=== PATIENT | female | born 1955 | race African-American/Black ===

== ENCOUNTER 2018-12-26 20:31 | Inpatient (IN) | payer OTHER ==
[~2018-12-26] VITALS: Ht 162.6 cm; Wt 58.7 kg
[2018-12-26 21:45] VITALS: BP 152/85
[2018-12-26] MEDS ORDERED: ONDANSETRON PF 4 MG/2 ML VIAL. IVP PRN (22:45)
[2018-12-26] MEDS ORDERED: ACETAMINOPHEN 325 MG TABLET. PO PRN (22:45)
[2018-12-26] MEDS ORDERED: levOFLOXacin PER PHARMACY. MC PRN (23:00)
[2018-12-26] MEDS: oxyCODONE/APAP 5/325 1 TAB TABLET PO PRN (23:14)
[2018-12-26 23:16] VITALS: BP 135/86
[2018-12-27 03:09] VITALS: BP 159/87
--- NOTE | 2018-12-27 03:42 | NUR ---
12/26/18 2140 pt arrived to unit transferred to room 410 from [facility] per EMS, admit care done, new orders reviewed with pt and , POC discussed to pt and verbalized understanding.
[2018-12-27 05:06] LABS: BASO % 1 % (0-3); EOS # 0.1 x10^3/uL (0.0-0.7); EOS % 1 % (0-3); HEMOGLOBIN 12.2 g/dL (12.0-15.5); LYMPH % 28 % (24-48); MEAN CORPUSCULAR HEMOGLOBIN 31 pg (25-35); MEAN CORPUSCULAR HGB CONC 34 g/dL (31-37); MEAN CORPUSCULAR VOLUME 93 fL (79-100); MONO # 0.5 x10^3/uL (0.0-1.1); MONO % 6 % (0-9); NEUT # 4.5 x10^3/uL (1.8-7.7); NEUT % 64 % (31-73); PLATELET COUNT 546 x10^3/uL (140-400); RED BLOOD COUNT 3.88 x10^6/uL (3.50-5.40); RED CELL DISTRIBUTION WIDTH 13.6 % (11.5-14.5); WHITE BLOOD COUNT 7.1 x10^3/uL (4.0-11.0)
[2018-12-27 05:17] LABS: PROTHROMBIN TIME PATIENT 13.7 SEC (11.7-14.0)
[2018-12-27 05:43] LABS: ALBUMIN 2.7 g/dL (3.4-5.0); ALBUMIN/GLOBULIN RATIO 0.6 (1.0-1.7); CALCIUM 8.7 mg/dL (8.5-10.1); CREATININE 0.8 mg/dL (0.6-1.0); GFR 87.7; POTASSIUM 3.8 mmol/L (3.5-5.1); TOTAL BILIRUBIN 0.3 mg/dL (0.2-1.0); TOTAL PROTEIN 7.3 g/dL (6.4-8.2)
[2018-12-27] MEDS ORDERED: cloNIDine HCL 0.1 MG TABLET PO SCH (06:00)
[2018-12-27] MEDS: oxyCODONE/APAP 5/325 1 TAB TABLET PO PRN ×2 (06:06→09:54)
[2018-12-27] MEDS ORDERED: cloNIDine HCL 0.1 MG TABLET PO PRN ×2 (06:15→07:45)
[2018-12-27 07:00] VITALS: BP 169/79
--- NOTE | 2018-12-27 09:26 | PDOC2 ---
GI CONSULT Reason For Consult: Diverticulitis HPI: HPI: Pleasant 63 y/o female transferred from [place], present. Reports 3 days of lower abdominal stabbing, intermittent, worse w/ eating. No reflux/heartburn, dysphagia, n/v, diarrhea, constipation, hematochezia, melena, or weight loss. Labs here note normal WBC, glucose 304 (known DM - says controlled w/ diet), ALT 112, and Alk Phos 372. 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 On IV Levaquin, tolerating full liquid diet, feels better today. No previous EGD. Reportedly normal colonoscopy ~[address] [facility]. No GB, liver, pancreas, or PUD history. No NSAIDs. PMH: PMH: DM right cataract removal/lens implant, left oophorectomy FH: Family History: Cancer (father - throat) Social History: Smoke: No ALCOHOL: occassional Drugs: None ROS: GEN: Denies fevers, chills, sweats HEENT: Denies blurred vision, sore throat CV: Denies chest pain RESP: Denies shortness of air, cough GI: Per HPI : Denies hematuria, dysuria ENDO: Denies weight changes NEURO: Denies confusion, dizziness MSK: Denies weakness, joint pain/swelling SKIN: Denies jaundice, pruritus Vitals: Vitals: Vital Signs Date Time Temp Pulse Resp B/P (MAP) Pulse Ox O2 Delivery O2 Flow Rate FiO2 12/27/18 07:00 98.2 80 16 169/79 (109) 95 Room Air 98.2 Labs: Labs: Laboratory Tests Test 12/27/18 04:10 White Blood Count 7.1 x10^3/uL (4.0-11.0) Red Blood Count 3.88 x10^6/uL (3.50-5.40) Hemoglobin 12.2 g/dL (12.0-15.5) Hematocrit 36.0 % (36.0-47.0) Mean Corpuscular Volume 93 fL (79-100) Mean Corpuscular Hemoglobin 31 pg (25-35) Mean Corpuscular Hemoglobin Concent 34 g/dL (31-37) Red Cell Distribution Width 13.6 % (11.5-14.5) Platelet Count 546 x10^3/uL (140-400) Neutrophils (%) (Auto) 64 % (31-73) Lymphocytes (%) (Auto) 28 % (24-48) Monocytes (%) (Auto) 6 % (0-9) Eosinophils (%) (Auto) 1 % (0-3) Basophils (%) (Auto) 1 % (0-3) Neutrophils # (Auto) 4.5 x10^3/uL (1.8-7.7) Lymphocytes # (Auto) 2.0 x10^3/uL (1.0-4.8) Monocytes # (Auto) 0.5 x10^3/uL (0.0-1.1) Eosinophils # (Auto) 0.1 x10^3/uL (0.0-0.7) Basophils # (Auto) 0.0 x10^3/uL (0.0-0.2) Erythrocyte Sedimentation Rate 50 (0-25) Prothrombin Time 13.7 SEC (11.7-14.0) Prothromb Time International Ratio 1.1 (0.8-1.1) Sodium Level 140 mmol/L (136-145) Potassium Level 3.8 mmol/L (3.5-5.1) Chloride Level 105 mmol/L (98-107) Carbon Dioxide Level 27 mmol/L (21-32) Anion Gap 8 (6-14) Blood Urea Nitrogen 9 mg/dL (7-20) Creatinine 0.8 mg/dL (0.6-1.0) Estimated GFR (Cockcroft-Gault) 87.7 BUN/Creatinine Ratio 11 (6-20) Glucose Level 304 mg/dL (70-99) Calcium Level 8.7 mg/dL (8.5-10.1) Total Bilirubin 0.3 mg/dL (0.2-1.0) Aspartate Amino Transf (AST/SGOT) 33 U/L (15-37) Alanine Aminotransferase (ALT/SGPT) 112 U/L (14-59) Alkaline Phosphatase 372 U/L (46-116) Total Protein 7.3 g/dL (6.4-8.2) Albumin 2.7 g/dL (3.4-5.0) Albumin/Globulin Ratio 0.6 (1.0-1.7) Allergies: Coded Allergies: Penicillins (Verified Allergy, Unknown, 12/27/18) Uncoded Allergies: pcn (Allergy, Severe, swelling,hives, 12/26/18) Medications: Current Medications Medications (Trade) Dose Ordered Sig/Sloan Route PRN Reason Start Time Stop Time Status Last Admin Dose Admin Oxycodone/ Acetaminophen (Percocet 5/325) 1 tab PRN Q6HRS PRN PO PAIN 12/26/18 22:45 12/26/18 23:14 Levofloxacin/ Dextrose 100 ml @ 100 mls/hr 1X ONCE IV 12/26/18 23:00 12/26/18 23:59 DC 12/26/18 23:13 Imaging: Imaging: Per HPI. 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 Okay to ADAT. Will review CT report w/ Dr. Brown. Note Dr. Torres asked to see re: liver findings. Outpt colonoscopy in 2-3 months. JENNIFER FERRER Dec 27, 2018 09:26
--- NOTE | 2018-12-27 09:57 | PDOC1 ---
History and Physical Date of Admission Date of Admission DATE: 12/27/18 TIME: 09:50 Identification/Chief Complaint Chief Complaint abd pain x few days. 3 lb weight loss Source Source: Caregiver, Chart review, Patient History of Present Illness History of Present Illness she really does not have any signif past medical, does not take any meds at home, transfer from [place] for abd pain few days and some 3 lb weight loss. NO other sxs,. Denies fam hx CA. Denios diarrhea, nausea. emesis or fevers. Diverticulitis on CT with some mucosal wall thickening proximal colon cant rule out underlying malignancy, She also has a 2.5 cm inferior right hepatic lobe mass that is also news to her, She had a c scope Dr Spaulding some 5 yrs ago as routine and was told to come back in 10 yrs, I reviewed chart and labs from [facility]. SHe also has MERRY thrombosis, I conuslted gI and heme onc, ordered AFP US will be done and if confirms hepatic mass will need biospy HEme onc has ordered lovenox weight based BID< Dw RNs and pt and family at bedside NO home meds to reconcile PCN allergy - hives - i started levaquin Past Medical History Cardiovascular: No pertinent hx Pulmonary: No pertinent hx GI: No pertinent hx Heme/Onc: No pertinent hx Hepatobiliary: No pertinent hx Psych: No pertinent hx Rheumatologic: No pertinent hx Infectious disease: No pertinent hx ENT: No pertinent hx Renal/: No pertinent hx, Other (ovarian cyst) Endocrine: No pertinent hx Dermatology: No pertinent hx Past Surgical History Past Surgical History: Other (catract sx) Family History Family History: No Significant Social History Smoke: No ALCOHOL: occassional Drugs: None Current Medications Current Medications Current Medications Ondansetron HCl (Zofran) 4 mg PRN Q6HRS PRN IVP NAUSEA/VOMITING; Start 12/26/18 at 22:45 Morphine Sulfate (Morphine Sulfate) 2 mg PRN Q2HR PRN IV PAIN; Start 12/26/18 at 22:45 Acetaminophen (Tylenol) 650 mg PRN Q6HRS PRN PO mild pain/fever; Start 12/26/18 at 22:45 Oxycodone/ Acetaminophen (Percocet 5/325) 1 tab PRN Q6HRS PRN PO MODERATE - SEVERE PAIN Last administered on 12/26/18at 23:14; Start 12/26/18 at 22:45 Clonidine HCl (Catapres) 0.1 mg Q8HRS PO ; Start 12/27/18 at 06:00; Stop 12/27/18 at 06:06; Status DC Levofloxacin/ Dextrose (Levaquin Per Pharmacy) 1 each PRN DAILY PRN MC SEE COMMENTS; Start 12/26/18 at 23:00 Levofloxacin/ Dextrose 100 ml @ 100 mls/hr 1X ONCE IV Last administered on 12/26/18at 23:13; Start 12/26/18 at 23:00; Stop 12/26/18 at 23:59; Status DC Levofloxacin/ Dextrose 100 ml @ 100 mls/hr Q24H IV ; Start 12/27/18 at 21:00 Clonidine HCl (Catapres) 0.1 mg PRN Q8HRS PRN PO HYPERTENSION; Start 12/27/18 at 06:15; Stop 12/27/18 at 07:37; Status DC Clonidine HCl (Catapres) 0.1 mg PRN Q2HRS PRN PO HYPERTENSION; Start 12/27/18 at 07:45 Allergies Allergies: Coded Allergies: Penicillins (Verified Allergy, Severe, SWELLING, HIVES, 12/27/18) ROS Review of System as per HPI,all else neg Physical Exam General: Alert, Oriented X3, Cooperative, No acute distress HEENT: Atraumatic, EOMI Lungs: Clear to auscultation, Normal air movement Heart: S1S2, RRR, no thrills, no rubs, no gallops, no murmurs Cardiovascular: S1, S2 Breasts: Normal, Rt breast nml w/o mass, Lt breast nml w/o mass, Nipples normal Abdomen: Normal bowel sounds, Soft, No tenderness, No hepatosplenomegaly, No masses PELVIC: Nml ext genitalia Extremities: No clubbing, No cyanosis, No edema, Normal pulses, No tenderness/swelling Skin: No rashes, No breakdown, No significant lesion Neuro: Normal gait, Normal speech, Strength at 5/5 X4 ext, Normal tone, Sensation intact, Cranial nerves 3-12 NL, Reflexes 2+ Psych/Mental Status: Mental status NL, Mood NL Vitals Vitals Vital Signs Date Time Temp Pulse Resp B/P (MAP) Pulse Ox O2 Delivery O2 Flow Rate FiO2 12/27/18 07:00 98.2 80 16 169/79 (109) 95 Room Air 98.2 Labs Labs Laboratory Tests Test 12/27/18 04:10 White Blood Count 7.1 x10^3/uL (4.0-11.0) Red Blood Count 3.88 x10^6/uL (3.50-5.40) Hemoglobin 12.2 g/dL (12.0-15.5) Hematocrit 36.0 % (36.0-47.0) Mean Corpuscular Volume 93 fL (79-100) Mean Corpuscular Hemoglobin 31 pg (25-35) Mean Corpuscular Hemoglobin Concent 34 g/dL (31-37) Red Cell Distribution Width 13.6 % (11.5-14.5) Platelet Count 546 x10^3/uL (140-400) Neutrophils (%) (Auto) 64 % (31-73) Lymphocytes (%) (Auto) 28 % (24-48) Monocytes (%) (Auto) 6 % (0-9) Eosinophils (%) (Auto) 1 % (0-3) Basophils (%) (Auto) 1 % (0-3) Neutrophils # (Auto) 4.5 x10^3/uL (1.8-7.7) Lymphocytes # (Auto) 2.0 x10^3/uL (1.0-4.8) Monocytes # (Auto) 0.5 x10^3/uL (0.0-1.1) Eosinophils # (Auto) 0.1 x10^3/uL (0.0-0.7) Basophils # (Auto) 0.0 x10^3/uL (0.0-0.2) Erythrocyte Sedimentation Rate 50 (0-25) Prothrombin Time 13.7 SEC (11.7-14.0) Prothromb Time International Ratio 1.1 (0.8-1.1) Sodium Level 140 mmol/L (136-145) Potassium Level 3.8 mmol/L (3.5-5.1) Chloride Level 105 mmol/L (98-107) Carbon Dioxide Level 27 mmol/L (21-32) Anion Gap 8 (6-14) Blood Urea Nitrogen 9 mg/dL (7-20) Creatinine 0.8 mg/dL (0.6-1.0) Estimated GFR (Cockcroft-Gault) 87.7 BUN/Creatinine Ratio 11 (6-20) Glucose Level 304 mg/dL (70-99) Calcium Level 8.7 mg/dL (8.5-10.1) Total Bilirubin 0.3 mg/dL (0.2-1.0) Aspartate Amino Transf (AST/SGOT) 33 U/L (15-37) Alanine Aminotransferase (ALT/SGPT) 112 U/L (14-59) Alkaline Phosphatase 372 U/L (46-116) Total Protein 7.3 g/dL (6.4-8.2) Albumin 2.7 g/dL (3.4-5.0) Albumin/Globulin Ratio 0.6 (1.0-1.7) Laboratory Tests Test 12/27/18 04:10 White Blood Count 7.1 x10^3/uL (4.0-11.0) Red Blood Count 3.88 x10^6/uL (3.50-5.40) Hemoglobin 12.2 g/dL (12.0-15.5) Hematocrit 36.0 % (36.0-47.0) Mean Corpuscular Volume 93 fL (79-100) Mean Corpuscular Hemoglobin 31 pg (25-35) Mean Corpuscular Hemoglobin Concent 34 g/dL (31-37) Red Cell Distribution Width 13.6 % (11.5-14.5) Platelet Count 546 x10^3/uL (140-400) Neutrophils (%) (Auto) 64 % (31-73) Lymphocytes (%) (Auto) 28 % (24-48) Monocytes (%) (Auto) 6 % (0-9) Eosinophils (%) (Auto) 1 % (0-3) Basophils (%) (Auto) 1 % (0-3) Neutrophils # (Auto) 4.5 x10^3/uL (1.8-7.7) Lymphocytes # (Auto) 2.0 x10^3/uL (1.0-4.8) Monocytes # (Auto) 0.5 x10^3/uL (0.0-1.1) Eosinophils # (Auto) 0.1 x10^3/uL (0.0-0.7) Basophils # (Auto) 0.0 x10^3/uL (0.0-0.2) Erythrocyte Sedimentation Rate 50 (0-25) Prothrombin Time 13.7 SEC (11.7-14.0) Prothromb Time International Ratio 1.1 (0.8-1.1) Sodium Level 140 mmol/L (136-145) Potassium Level 3.8 mmol/L (3.5-5.1) Chloride Level 105 mmol/L (98-107) Carbon Dioxide Level 27 mmol/L (21-32) Anion Gap 8 (6-14) Blood Urea Nitrogen 9 mg/dL (7-20) Creatinine 0.8 mg/dL (0.6-1.0) Estimated GFR (Cockcroft-Gault) 87.7 BUN/Creatinine Ratio 11 (6-20) Glucose Level 304 mg/dL (70-99) Calcium Level 8.7 mg/dL (8.5-10.1) Total Bilirubin 0.3 mg/dL (0.2-1.0) Aspartate Amino Transf (AST/SGOT) 33 U/L (15-37) Alanine Aminotransferase (ALT/SGPT) 112 U/L (14-59) Alkaline Phosphatase 372 U/L (46-116) Total Protein 7.3 g/dL (6.4-8.2) Albumin 2.7 g/dL (3.4-5.0) Albumin/Globulin Ratio 0.6 (1.0-1.7) VTE Prophylaxis Ordered VTE Prophylaxis Devices: Yes VTE Pharmacological Prophylaxi: Yes Assessment/Plan Assessment/Plan ACute diverticultis Prox wall colon thickening cant rule out underlying malignancy 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
--- NOTE | 2018-12-27 10:02 | PDOC2 ---
CONSULT Date of Consult Date of Consult DATE: 12/27/18 TIME: 09:56 Reason for consultation: Liver mass Consult: Hematology oncology, Dr. Yasmin Callaway History of present illness: She is a 63 female who had abdominal pain, acute, ongoing 5 days, worsening over time, better with meds since admission, with antibiotics and pain meds, assoc w/ a 8 lb wt loss in the last week, denies nausea vomiting constipation or diarrhea, ct shows lymphadenopathy which may be due to inflammatory changes and a liver mass as well as suspected sigmoid diverticulitis. Past medical history: Diabetes mellitus Cataracts Ovarian cyst Migraine Past surgical history: Left ovarian cystectomy Cataract surgery Colonoscopy remotely Allergies: Penicillin Medications: See attached list Social history: Family history: Father with throat cancer Review of systems: Weight loss, abdominal pain, otherwise rest of 10 point review of systems negative this morning Physical exam: Vitals reviewed Gen.: Well-nourished and well-developed in no acute distress HEENT: mucous membranes moist, head normocephalic atraumatic Neck: Supple, no lymphadenopathy Lymph nodes: No palpable lymphadenopathy neck or axilla Lungs: Breathing comfortably w/o evidence of respiratory distress Heart: Regular rate and rhythm Abdomen: Soft, sl TTP lower, nondistended Extremities: No cyanosis or signif edema Skin: No obvious rashes or skin breakdown Neuro: Alert and oriented 3 Psych: Normal mood and affect Lab reviewed: White count 7.1, hemoglobin 12.2, platelets 546, MCV of 93 INR 1.1 Creatinine is 0.8 Alkaline phosphatase 372 ALT 112 T bili 0.3 Rads reviewed: CT abdomen and pelvis 26 December 2018 favor acute sigmoid diverticulitis, lymphadenopathy inflammatory changes, anterior left psoas muscle, with portal and periaortic lymphadenopathy, thrombosis of the inferior mesenteric vein, 2.5 cm right hepatic lobe lesion, recommend further imaging Case discussed with: Patient, GI team, her nurse, her family, and records reviewed in [employer] and [employer] including labs and radiology, please see note for summary details. Assessment and Plan: She has a 63-year-old female being treated for acute sigmoid diverticulitis with some lymph nodes that may be inflammatory and a liver mass as well as CT findings of inferior mesenteric vein thrombosis mesenteric vein thrombosis: Would recommend Lovenox 100 mg/kg every 12 hours for now Diverticulitis: On antibiotics, GI has been consulted, with plans for outpatient colonoscopy Liver mass: Ultrasound of the liver to be ordered, with biopsy as needed, Lovenox will need to be held for biopsy if pursued Thank you kindly for this consultation, I will return on Tuesday morning but am available for questions in the interim. Social History No ALCOHOL: occassional Drugs: None Current Medications Current Medications Current Medications Ondansetron HCl (Zofran) 4 mg PRN Q6HRS PRN IVP NAUSEA/VOMITING; Start 12/26/18 at 22:45 Morphine Sulfate (Morphine Sulfate) 2 mg PRN Q2HR PRN IV PAIN; Start 12/26/18 at 22:45 Acetaminophen (Tylenol) 650 mg PRN Q6HRS PRN PO mild pain/fever; Start 12/26/18 at 22:45 Oxycodone/ Acetaminophen (Percocet 5/325) 1 tab PRN Q6HRS PRN PO MODERATE - SEVERE PAIN Last administered on 12/27/18at 09:54; Start 12/26/18 at 22:45 Clonidine HCl (Catapres) 0.1 mg Q8HRS PO ; Start 12/27/18 at 06:00; Stop 12/27/18 at 06:06; Status DC Levofloxacin/ Dextrose (Levaquin Per Pharmacy) 1 each PRN DAILY PRN MC SEE COMMENTS; Start 12/26/18 at 23:00 Levofloxacin/ Dextrose 100 ml @ 100 mls/hr 1X ONCE IV Last administered on 12/26/18at 23:13; Start 12/26/18 at 23:00; Stop 12/26/18 at 23:59; Status DC Levofloxacin/ Dextrose 100 ml @ 100 mls/hr Q24H IV ; Start 12/27/18 at 21:00 Clonidine HCl (Catapres) 0.1 mg PRN Q8HRS PRN PO HYPERTENSION; Start 12/27/18 a t 06:15; Stop 12/27/18 at 07:37; Status DC Clonidine HCl (Catapres) 0.1 mg PRN Q2HRS PRN PO HYPERTENSION; Start 12/27/18 at 07:45 Enoxaparin Sodium (Lovenox 60mg Syringe) 60 mg Q12HR SQ ; Start 12/27/18 at 21:00; Status UNV Allergies Allergies: Coded Allergies: Penicillins (Verified Allergy, Severe, SWELLING, HIVES, 12/27/18) Vitals VITALS Vital Signs Date Time Temp Pulse Resp B/P (MAP) Pulse Ox O2 Delivery O2 Flow Rate FiO2 12/27/18 09:54 18 Room Air 12/27/18 07:00 98.2 80 169/79 (109) 95 98.2 Labs Labs Laboratory Tests Test 12/27/18 04:10 White Blood Count 7.1 x10^3/uL (4.0-11.0) Red Blood Count 3.88 x10^6/uL (3.50-5.40) Hemoglobin 12.2 g/dL (12.0-15.5) Hematocrit 36.0 % (36.0-47.0) Mean Corpuscular Volume 93 fL (79-100) Mean Corpuscular Hemoglobin 31 pg (25-35) Mean Corpuscular Hemoglobin Concent 34 g/dL (31-37) Red Cell Distribution Width 13.6 % (11.5-14.5) Platelet Count 546 x10^3/uL (140-400) Neutrophils (%) (Auto) 64 % (31-73) Lymphocytes (%) (Auto) 28 % (24-48) Monocytes (%) (Auto) 6 % (0-9) Eosinophils (%) (Auto) 1 % (0-3) Basophils (%) (Auto) 1 % (0-3) Neutrophils # (Auto) 4.5 x10^3/uL (1.8-7.7) Lymphocytes # (Auto) 2.0 x10^3/uL (1.0-4.8) Monocytes # (Auto) 0.5 x10^3/uL (0.0-1.1) Eosinophils # (Auto) 0.1 x10^3/uL (0.0-0.7) Basophils # (Auto) 0.0 x10^3/uL (0.0-0.2) Erythrocyte Sedimentation Rate 50 (0-25) Prothrombin Time 13.7 SEC (11.7-14.0) Prothromb Time International Ratio 1.1 (0.8-1.1) Sodium Level 140 mmol/L (136-145) Potassium Level 3.8 mmol/L (3.5-5.1) Chloride Level 105 mmol/L (98-107) Carbon Dioxide Level 27 mmol/L (21-32) Anion Gap 8 (6-14) Blood Urea Nitrogen 9 mg/dL (7-20) Creatinine 0.8 mg/dL (0.6-1.0) Estimated GFR (Cockcroft-Gault) 87.7 BUN/Creatinine Ratio 11 (6-20) Glucose Level 304 mg/dL (70-99) Calcium Level 8.7 mg/dL (8.5-10.1) Total Bilirubin 0.3 mg/dL (0.2-1.0) Aspartate Amino Transf (AST/SGOT) 33 U/L (15-37) Alanine Aminotransferase (ALT/SGPT) 112 U/L (14-59) Alkaline Phosphatase 372 U/L (46-116) Total Protein 7.3 g/dL (6.4-8.2) Albumin 2.7 g/dL (3.4-5.0) Albumin/Globulin Ratio 0.6 (1.0-1.7) Laboratory Tests Test 12/27/18 04:10 White Blood Count 7.1 x10^3/uL (4.0-11.0) Red Blood Count 3.88 x10^6/uL (3.50-5.40) Hemoglobin 12.2 g/dL (12.0-15.5) Hematocrit 36.0 % (36.0-47.0) Mean Corpuscular Volume 93 fL (79-100) Mean Corpuscular Hemoglobin 31 pg (25-35) Mean Corpuscular Hemoglobin Concent 34 g/dL (31-37) Red Cell Distribution Width 13.6 % (11.5-14.5) Platelet Count 546 x10^3/uL (140-400) Neutrophils (%) (Auto) 64 % (31-73) Lymphocytes (%) (Auto) 28 % (24-48) Monocytes (%) (Auto) 6 % (0-9) Eosinophils (%) (Auto) 1 % (0-3) Basophils (%) (Auto) 1 % (0-3) Neutrophils # (Auto) 4.5 x10^3/uL (1.8-7.7) Lymphocytes # (Auto) 2.0 x10^3/uL (1.0-4.8) Monocytes # (Auto) 0.5 x10^3/uL (0.0-1.1) Eosinophils # (Auto) 0.1 x10^3/uL (0.0-0.7) Basophils # (Auto) 0.0 x10^3/uL (0.0-0.2) Erythrocyte Sedimentation Rate 50 (0-25) Prothrombin Time 13.7 SEC (11.7-14.0) Prothromb Time International Ratio 1.1 (0.8-1.1) Sodium Level 140 mmol/L (136-145) Potassium Level 3.8 mmol/L (3.5-5.1) Chloride Level 105 mmol/L (98-107) Carbon Dioxide Level 27 mmol/L (21-32) Anion Gap 8 (6-14) Blood Urea Nitrogen 9 mg/dL (7-20) Creatinine 0.8 mg/dL (0.6-1.0) Estimated GFR (Cockcroft-Gault) 87.7 BUN/Creatinine Ratio 11 (6-20) Glucose Level 304 mg/dL (70-99) Calcium Level 8.7 mg/dL (8.5-10.1) Total Bilirubin 0.3 mg/dL (0.2-1.0) Aspartate Amino Transf (AST/SGOT) 33 U/L (15-37) Alanine Aminotransferase (ALT/SGPT) 112 U/L (14-59) Alkaline Phosphatase 372 U/L (46-116) Total Protein 7.3 g/dL (6.4-8.2) Albumin 2.7 g/dL (3.4-5.0) Albumin/Globulin Ratio 0.6 (1.0-1.7) YASMIN CALLAWAY MD Dec 27, 2018 10:02
[2018-12-27 10:43] VITALS: BP 152/70
--- NOTE | 2018-12-27 11:23 | NUR ---
SW following for discharge planning. Chart reviewed, discussed with RN. Pt from home with . RN advised no SW needs at this time, but did advise pt could have a possible cancer dx. SW will continue to follow.
--- NOTE | 2018-12-27 12:48 | RAD ---
EXAM: RIGHT UPPER QUADRANT ULTRASOUND. HISTORY: Liver lesion. Wharton's syndrome, lymphadenopathy. COMPARISON: None available. FINDINGS: Sonographic evaluation of the right upper quadrant was performed. Hyperechogenicity of the hepatic parenchyma is consistent with diffuse hepatic steatosis. No focal lesions are identified. The gallbladder is unremarkable without evidence of stones, wall thickening or pericholecystic fluid. There is no sonographic Ortiz sign. The common duct measures 3 mm. The visualized portions of the head of the pancreas reveal no abnormality. The right kidney measures 13.1 cm. Cortical thickness and echogenicity are preserved. There is no hydronephrosis. The visualized portions of the abdominal aorta and inferior vena cava are grossly patent and normal in caliber. IMPRESSION: 1. No focal hepatic lesion is identified. Correlate for the site of the known lesion. MRI with and without contrast could further characterize if there is persistent concern. 2. Diffuse hepatic steatosis. Electronically signed by: Barbara Castellon MD (12/27/2018 12:45 PM) [facility]
[2018-12-27 14:32] VITALS: BP 162/86
[2018-12-27] MEDS: MORPHINE SULFATE 2 MG/ML VIAL. IV PRN ×2 (16:16→19:21)
[2018-12-27 19:00] VITALS: BP 162/86
[2018-12-27 23:00] VITALS: BP 160/88
[2018-12-28 03:00] VITALS: BP 160/96
[2018-12-28 07:00] VITALS: BP 152/91
[2018-12-28 09:56] LABS: ALBUMIN 2.7 g/dL (3.4-5.0); DIRECT BILIRUBIN 0.1 mg/dL (0.0-0.2); TOTAL BILIRUBIN 0.3 mg/dL (0.2-1.0); TOTAL PROTEIN 7.3 g/dL (6.4-8.2)
[2018-12-28] MEDS: oxyCODONE/APAP 5/325 1 TAB TABLET PO PRN ×2 (10:03→20:34)
[2018-12-28 11:00] VITALS: BP 140/84
[2018-12-28] MEDS ORDERED: APIX5TAB PO (11:22)
[2018-12-28] MEDS ORDERED: LEVO500T59 PO (11:24)
--- NOTE | 2018-12-28 11:24 | PDOC ---
Subjective: Subjective: Some LLQ discomfort - better now after pain pill. Tolerating PO, stooled yesterday. Objective: Vital Signs: Vital Signs Date Time Temp Pulse Resp B/P (MAP) Pulse Ox O2 Delivery O2 Flow Rate FiO2 12/28/18 11:00 98.5 88 18 140/84 (102) 95 Room Air 98.5 Labs: Laboratory Tests Test 12/28/18 08:20 Total Bilirubin 0.3 mg/dL Direct Bilirubin 0.1 mg/dL Aspartate Amino Transf (AST/SGOT) 33 U/L Alanine Aminotransferase (ALT/SGPT) 93 U/L Alkaline Phosphatase 361 U/L Total Protein 7.3 g/dL Albumin 2.7 g/dL Imaging: Abd US 12/27 IMPRESSION: 1. No focal hepatic lesion is identified. Correlate for the site of the known lesion. MRI with and without contrast could further characterize if there is persistent concern. 2. Diffuse hepatic steatosis. PE: GEN: NAD LUNGS: CTAB HEART: RRR ABD: NABS, S/ND/NT NEURO/PSYCH: A & O 3, very pleasant A/P: LLQ pain Elevated ALT and Alk Phos - better Abnormal CT - 2.5cm right hepatic lobe density, diffuse diverticulosis w/ wall thickening and inflammatory change in sigmoid w/ adjacent lymphadenopathy, lymphadenopathy along left psoas muscle Hepatic steatosis -- No liver lesion on US - ?MRI - await oncology input - d/w nurse yesterday afternoon. Plans to advance diet. Outpt colonoscopy. JENNIFER FERRER Dec 28, 2018 11:24
--- NOTE | 2018-12-28 12:05 | PDOC3 ---
Discharge Summary Visit Information Date of Admission: Dec 26, 2018 Date of Discharge: Dec 28, 2018 Admitting Diagnosis Comment: MERRY thrombosis Acute abd pain Diverticultis ? liver mass with normal AFP Brief Hospital Course Allergies Allergies Coded Allergies Type Severity Reaction Last Updated Verified Penicillins Allergy Severe SWELLING, HIVES 12/27/18 Yes Vital Signs Vital Signs Date Time Temp Pulse Resp B/P (MAP) Pulse Ox O2 Delivery O2 Flow Rate FiO2 12/28/18 11:03 18 Room Air 12/28/18 11:00 98.5 88 140/84 (102) 95 98.5 Lab Results Laboratory Tests Test 12/27/18 04:10 12/28/18 08:20 White Blood Count 7.1 x10^3/uL (4.0-11.0) Red Blood Count 3.88 x10^6/uL (3.50-5.40) Hemoglobin 12.2 g/dL (12.0-15.5) Hematocrit 36.0 % (36.0-47.0) Mean Corpuscular Volume 93 fL (79-100) Mean Corpuscular Hemoglobin 31 pg (25-35) Mean Corpuscular Hemoglobin Concent 34 g/dL (31-37) Red Cell Distribution Width 13.6 % (11.5-14.5) Platelet Count 546 x10^3/uL (140-400) Neutrophils (%) (Auto) 64 % (31-73) Lymphocytes (%) (Auto) 28 % (24-48) Monocytes (%) (Auto) 6 % (0-9) Eosinophils (%) (Auto) 1 % (0-3) Basophils (%) (Auto) 1 % (0-3) Neutrophils # (Auto) 4.5 x10^3/uL (1.8-7.7) Lymphocytes # (Auto) 2.0 x10^3/uL (1.0-4.8) Monocytes # (Auto) 0.5 x10^3/uL (0.0-1.1) Eosinophils # (Auto) 0.1 x10^3/uL (0.0-0.7) Basophils # (Auto) 0.0 x10^3/uL (0.0-0.2) Erythrocyte Sedimentation Rate 50 (0-25) Prothrombin Time 13.7 SEC (11.7-14.0) Prothromb Time International Ratio 1.1 (0.8-1.1) Sodium Level 140 mmol/L (136-145) Potassium Level 3.8 mmol/L (3.5-5.1) Chloride Level 105 mmol/L (98-107) Carbon Dioxide Level 27 mmol/L (21-32) Anion Gap 8 (6-14) Blood Urea Nitrogen 9 mg/dL (7-20) Creatinine 0.8 mg/dL (0.6-1.0) Estimated GFR (Cockcroft-Gault) 87.7 BUN/Creatinine Ratio 11 (6-20) Glucose Level 304 mg/dL (70-99) Calcium Level 8.7 mg/dL (8.5-10.1) Total Bilirubin 0.3 mg/dL (0.2-1.0) 0.3 mg/dL (0.2-1.0) Aspartate Amino Transf (AST/SGOT) 33 U/L (15-37) 33 U/L (15-37) Alanine Aminotransferase (ALT/SGPT) 112 U/L (14-59) 93 U/L (14-59) Alkaline Phosphatase 372 U/L (46-116) 361 U/L (46-116) Total Protein 7.3 g/dL (6.4-8.2) 7.3 g/dL (6.4-8.2) Albumin 2.7 g/dL (3.4-5.0) 2.7 g/dL (3.4-5.0) Albumin/Globulin Ratio 0.6 (1.0-1.7) Tumor Marker Alpha Fetoprotein 2.4 ng/mL (0.0-8.3) Direct Bilirubin 0.1 mg/dL (0.0-0.2) Laboratory Tests Test 12/28/18 08:20 Total Bilirubin 0.3 mg/dL (0.2-1.0) Direct Bilirubin 0.1 mg/dL (0.0-0.2) Aspartate Amino Transf (AST/SGOT) 33 U/L (15-37) Alanine Aminotransferase (ALT/SGPT) 93 U/L (14-59) Alkaline Phosphatase 361 U/L (46-116) Total Protein 7.3 g/dL (6.4-8.2) Albumin 2.7 g/dL (3.4-5.0) Brief Hospital Course Ms. Connor is a 63 old otherwise previously healthy, admitted for abd pain, transferred from [place] after a dx of MERRY thrombosis, diverticultis and possible liver ,mass on CTA., She got lovenox BID dose as recommendd by heme onc, also abx for diverticulitis (hives with PCN), liver mas soN CTA which was neg on US but mRI was recommended so doing that, AFP normal though, She denies fam hx CA, denies weight loss and c scope some [address] Spaulding, ok HOme today with on levaquin and eliquis x 3 mos if mRI neg for liver mass FF up heme onc 3 mos after OAC< with rpt CTA ordered dw too and rn time 42 Discharge Information Condition at Discharge: Improved, Stable Follow Up: Weeks (DR Victorina martin after 2-3 mos re Merry thrombosis, rpt CT script on chart) Disposition/Orders: D/C to Home Scheduled Apixaban (Eliquis) 5 Mg Tablet, 5 MG PO BID for MERRY thrombosis for 90 Days, #180 Prescribed by: ANGELITO OROSCO on 12/28/18 1122 Apixaban (Eliquis) 5 Mg Tablet, 10 MG PO BID for MERRY thrombosis for 7 Days, #28 Prescribed by: ANGELITO OROSCO on 12/28/18 1122 Levofloxacin (Levaquin) 500 Mg Tablet, 1 TAB PO DAILY for diverticulitis for 7 Days, #7 Ref 0 Prescribed by: ANGELITO OROCSO on 12/28/18 1124 ANGELITO OROSCO MD Dec 28, 2018 12:05
[2018-12-28] MEDS ORDERED: GADOTERATE 7.5 MMOL/15ML VIAL. IVP ONE (14:30)
[2018-12-28 15:00] VITALS: BP 155/86
--- NOTE | 2018-12-28 16:00 | NUR ---
RAGHAV following. Discussed with RN. Dr. Bejarano asked RAGHAV to meet with pt to determine if pt can afford Eliquis. RAGHAV provided $10 copay Eliquis coupon program for pt, pt able to afford medication. Dr. Bejarano notified. RAGHAV will continue to follow for discharge planning should any other needs arise.
--- NOTE | 2018-12-28 17:15 | RAD ---
MRI abdomen with and without contrast dated 12/28/2018. Comparison made to ultrasound dated 12/27/2018. CLINICAL INDICATION: Liver lesion. TECHNIQUE: Routine multiplanar multisequence MR imaging of the abdomen performed with and without the administration of 12 cc Dotarem. Incomplete postcontrast images to include 5 minute and 7 minute delay. FINDINGS: Study is somewhat limited. Postcontrast arterial and portal venous phases are not available or were not performed. The 5 minute and 7 minute postcontrast delayed images were obtained in the axial and coronal planes. There is a vague zone of inferior right lobe liver near the junctions of segments 5 and 6 that appear to communicate with the right hepatic vein and a right portal vein branch. This measures about 2 cm in size. There is vague enhancement in this region on the 5 and 7 minute postcontrast images. No distinct capsule. There is some mild diffusion restriction. The liver is otherwise homogeneous. No additional focal signal abnormality. No abnormal enhancement. Biliary tree normal in caliber. Gallbladder unremarkable. Spleen is normal in size. Pancreas, adrenal glands and kidneys are unremarkable. No hydronephrosis. No apparent adenopathy or ascites. IMPRESSION: There is a vague focus of signal abnormality in the inferior right lobe liver that is suboptimally evaluated. Given the appearance, considerations would include a transient hepatic intensity difference or area of periportal venous shunting or other benign lesion. Inflammatory processes or early malignancy cannot be excluded on this exam. Suggest a follow-up exam in 2-3 months to ensure stability. Of note, a complete. Postcontrast series to include arterial and portal venous phase imaging is recommended. Electronically signed by: Maico Alvarado MD (12/28/2018 5:12 PM) [facility]
[2018-12-28 19:20] VITALS: BP 138/80
[2018-12-28 23:01] VITALS: BP 146/88
[2018-12-29 03:05] VITALS: BP 148/92
[2018-12-29 07:00] VITALS: BP 131/79
[2018-12-29] MEDS: oxyCODONE/APAP 5/325 1 TAB TABLET PO PRN (08:09)
--- NOTE | 2018-12-29 09:41 | PDOC ---
Provider Note Provider Note MRI came late last night, past 5.30 pm IMPRESSION: There is a vague focus of signal abnormality in the inferior right lobe liver that is suboptimally evaluated. Given the appearance, considerations would include a transient hepatic intensity difference or area of periportal venous shunting or other benign lesion. Inflammatory processes or early malignancy cannot be excluded on this exam. Suggest a follow-up exam in 2-3 months to ensure stability. Of note, a complete. Postcontrast series to include arterial and portal venous phase imaging is recom NO new complaints Dw Dr Victorina Bourne, chris with eliquis x 3 mos TREat diverticulitis and will need c scope as OP down the line, work up those LNs if still there post diverticultis tx Pt seen and examined $10 co pay ok by her for a month dc summ and rx all with ANGELITO Owens RN, MD Dec 29, 2018 09:41
--- NOTE | 2018-12-29 09:44 | PDOC ---
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 OBJECTIVE Vital Signs Vital Signs Date Time Temp Pulse Resp B/P (MAP) Pulse Ox O2 Delivery O2 Flow Rate FiO2 12/29/18 09:30 98 Room Air 12/29/18 08:09 98 Room Air 12/29/18 07:41 Room Air 12/29/18 07:00 98.1 92 18 131/79 (96) 96 Room Air 98.1 12/29/18 03:05 98.4 88 16 148/92 (110) 98 Room Air 98.4 12/28/18 23:01 98.4 87 18 146/88 (107) 95 Room Air 98.4 12/28/18 21:34 Room Air 12/28/18 20:34 Room Air 12/28/18 20:00 Room Air 12/28/18 19:20 98.5 95 18 138/80 (99) 96 Room Air 98.5 12/28/18 15:00 98.6 84 18 155/86 (109) 96 Room Air 98.6 12/28/18 11:03 18 Room Air 12/28/18 11:00 98.5 88 18 140/84 (102) 95 Room Air 98.5 12/28/18 10:03 18 Room Air I & O Intake and Output 12/29/18 07:00 Intake Total 720 ml Balance 720 ml Intake Oral 720 ml # Voids 4 YASMIN HICKEY MD Dec 29, 2018 09:44
--- NOTE | 2018-12-29 09:45 | PDOC ---
Subjective: Subjective: Pain free, would like to go home. Objective: Objective: Nurse asks about DC. Vital Signs: Vital Signs Date Time Temp Pulse Resp B/P (MAP) Pulse Ox O2 Delivery O2 Flow Rate FiO2 12/29/18 09:30 98 Room Air 12/29/18 07:00 98.1 92 18 131/79 (96) 98.1 Imaging: Abd MRI 12/28 IMPRESSION: There is a vague focus of signal abnormality in the inferior right lobe liver that is suboptimally evaluated. Given the appearance, considerationswould include a transient hepatic intensity difference or area of periportal venous shunting or other benign lesion. Inflammatory processes or early malignancy cannot be excluded on this exam. Suggest a follow-up exam in 2-3 months to ensure stability. Of note, a complete. Postcontrast series to include arterial and portal venous phase imaging is recommended. PE: GEN: NAD, was resting LUNGS: CTAB HEART: RRR ABD: soft, non-tender NEURO/PSYCH: A & O 3 A/P: Abnormal CT - 2.5cm right hepatic lobe density, diffuse diverticulosis w/ wall thickening and inflammatory change in sigmoid w/ adjacent lymphadenopathy, lymphadenopathy along left psoas muscle -- DC per primary on PO atbx. 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 Follow-up for colonoscopy in ~2 months - our office will contact. Follow-up w/ oncology. JENNIFER FERRER Dec 29, 2018 09:45
--- NOTE | 2018-12-29 10:38 | NUR ---
SW following. Discussed with RN, no SW needs. Pt should discharge home with self care today.
--- NOTE | 2018-12-29 10:57 | NUR ---
Discharge Note: JEFF GONZALEZ S4 [place] Discharge instructions and discharge home medications reviewed with Patient and a copy given. All questions have been answered and understanding verbalized. The following instructions and handouts were given: information about medications, follow up appointments, diverticulitis, abdominal pain, etc. Discontinued lines and drains: IV line in right wrist removed, catheter tip intact. Patient discharged to home with self care with , wheelchair used for mobility to discharge vehicle.
== END 2018-12-29 10:57 | disposition home or self-care (01) | DRG 391 ==
LOC: 4 NORTH 21:42
PROVIDERS: ADMIT Internal Medicine; ATTEND Internal Medicine
DX: K57.32 Diverticulitis of large intestine without perforation or abscess without bleeding (principal); K55.069 Acute infarction of intestine, part and extent unspecified; Z79.01 Long term (current) use of anticoagulants; Z80.8 Family history of malignant neoplasm of other organs or systems; Z88.0 Allergy status to penicillin; Z90.721 Acquired absence of ovaries, unilateral; Z98.41 Cataract extraction status, right eye; G43.909 Migraine, unspecified, not intractable, without status migrainosus; Z79.899 Other long term (current) drug therapy
CPT/HCPCS: 36415; 74183; 76705; 80053; 80076; 82105; 85025; 85610; 85651; A9575; J1650; J1956; J2270; J3490; G0378

== ENCOUNTER 2021-02-18 14:57 | Emergency (ER) | payer OTHER ==
[~2021-02-18] VITALS: Ht 162.6 cm; Wt 63.7 kg
[~2021-02-18 14:57] MED LIST: APIX5TAB PO; LEVO500T59 PO
[2021-02-18] MEDS ORDERED: LIDOCAINE 1% Multi-Dose 20 ML VIAL. INJ ONE (19:00)
--- NOTE | 2021-02-18 19:57 | PHYS DOC ---
Past Medical History Past Medical History: No Pertinent History (MARVA TREADWELL APRN) Past Surgical History: Other Additional Past Surgical Histo: LEFT EYE CATARACT WITH IMPLANTS 11/2020 (MARVA TREADWELL APRN) Smoking Status: Never Smoker Alcohol Use: Rarely (MARVA TREADWELL APRN) General Adult EDM: Chief Complaint: ABSCESS HPI: HPI: Patient is a 65-year-old female who presents to the emergency department today for an abscess to her left buttock that started 9 days ago. Patient has no history of abscesses. She rates pain 9 out of 10. She reports that she contacted her primary care provider who put her on Bactrim and hydrocodone that she has been taking. She is 2 days into her antibiotic. Patient denies any fevers, nausea, vomiting, joint pain or myalgias. (MARVA TREADWELL APRN) Review of Systems: Review of Systems: Constitutional: See HPI GI: See HPI Musculoskeletal: See HPI Integument: See HPI (MARVA TREADWELL APRN) Heart Score: C/O Chest Pain: N/A Risk Factors: Risk Factors: DM, Current or recent (<one month) smoker, HTN, HLP, family history of CAD, obesity. Risk Scores: Score 0 - 3: 2.5% MACE over next 6 weeks - Discharge Home Score 4 - 6: 20.3% MACE over next 6 weeks - Admit for Clinical Observation Score 7 - 10: 72.7% MACE over next 6 weeks - Early Invasive Strategies (MARVA TREADWELL APRN) Current Medications: Current Medications Medications (Trade) Dose Ordered Sig/Sloan Start Time Stop Time Status Last Admin Dose Admin Lidocaine HCl (Lidocaine 1% 20ml Vial) 20 ml 1X ONCE 02/18/21 19:00 02/18/21 19:01 DC (MARVA TREADWELL APRN) Allergies: Allergies: Allergies Coded Allergies Type Severity Reaction Last Updated Verified Penicillins Allergy Severe SWELLING, HIVES 02/18/21 Yes Uncoded Allergies Type Severity Reaction Last Updated Verified VINYL Allergy Intermediate swelling, hives 02/18/21 (MARVA TREADWELL APRN) Physical Exam: PE: Constitutional: Well developed, well nourished, no acute distress, non-toxic appearance. [] HENT: Normocephalic, atraumatic, bilateral external ears normal, oropharynx moist, no oral exudates, nose normal. [] Eyes: PERRL, EOMI, conjunctiva normal, no discharge. [] Neck: Normal range of motion, no tenderness, supple, no stridor. [] Cardiovascular:Heart rate regular rhythm, no murmur [] Lungs & Thorax: Bilateral breath sounds clear to auscultation [] Abdomen: Bowel sounds normal, soft, no tenderness, no masses, no pulsatile masses. [] Skin: Warm, dry, 5 cm wide abscess noted to left buttock that is currently draining purulent drainage there is some fluctuance, no streaking Back: Normal range of motion Extremities: No tenderness, no cyanosis, no clubbing, ROM intact, no edema. [] Neurologic: Alert and oriented X 3, normal motor function, normal sensory function, no focal deficits noted. [] Psychologic: Affect normal, judgement normal, mood normal. [] (MARVA TREADWELL APRN) Current Patient Data: Vital Signs: Vital Signs Date Time Temp Pulse Resp B/P (MAP) Pulse Ox O2 Delivery O2 Flow Rate FiO2 02/18/21 19:02 86 18 186/87 (120) 98 Room Air 02/18/21 18:29 98.1 98.1 (MARVA TREADWELL APRN) EKG: EKG: [] (MARVA TREADWELL APRN) Radiology/Procedures: Radiology/Procedures: [] (MARVA TREADWELL APRN) Course & Med Decision Making: Course & Med Decision Making Pertinent Labs and Imaging studies reviewed. (See chart for details) Patient presents to the emergency department for an abscess to her left buttock. Patient is currently on antibiotics and pain medication but is only 2 days into her antibiotic. Abscess is currently draining purulent drainage. Abscess numbed with lidocaine and incision and drainage performed. Patient tolerated procedure. Patients tetanus is up to date. Patient advised to continue taking the pain medication antibiotic that she was discharged home with. She is also advised to perform sitz bath at home. Advised to follow-up with her primary care provider. I discussed with patient all findings and diagnostic testing as well as the need to follow-up with PCP for further evaluation and treatment or return to the ER if any new or worsening symptoms. Strict return precautions we re also discussed at length. Patient voiced understanding and agreement with the plan. Patient is hemodynamically stable at the time of disposition. (MARVA TREADWELL APRN) Course & Med Decision Making Patients Care and treatment plan provided by ER Nurse Practitioner. I was available for consult. Patient's chart reviewed. (NURYS SAN DO) Gali Disclaimer: Gali Disclaimer: This electronic medical record was generated, in whole or in part, using a voice recognition dictation system. (MARVA TREADWELL APRN) Incision and Drainage Indication: abscess Procedure: The patient was positioned appropriately. Local anesthesia was 1% lidocaine. An incision was then made over the apex of the lesion and small amount of purulent material was expressed. The drainage cavity was explored and the loculations broken down. The patients tetanus is up to date. The patient tolerated the procedure well. Complications: none. (MARVA TREADWELL APRN) Departure Departure Impression: Primary Impression: Abscess Disposition: 01 HOME / SELF CARE / HOMELESS Condition: GOOD Referrals: LUCIE DODGE MD (PCP) Patient Instructions: Abscess Additional Instructions: You were seen in the emergency department today for an abscess. This was drained in the emergency department. Please continue taking your antibiotic and your pain medication as previously prescribed. Keep the dressing in place and change it twice a day and when soiled. You can also perform sitz bath at home to help with the drainage process. Please follow-up with your primary care provider tomorrow regarding your ER visit. Please return to the emergency department if you develop worsening of your pain, increased redness/swelling/drainage, high fevers refractory to treatment, intractable nausea vomiting, weakness, joint pain. MARVA TREADWELL APRN Feb 18, 2021 19:57 NURYS SAN DO Feb 18, 2021 20:27
[2021-02-18 20:02] VITALS: BP 168/93
[2021-02-18] MEDS ORDERED: HYDROcodone/APAP 5/325MG 1 TAB TABLET PO ONE (20:15)
== END 2021-02-18 20:17 | disposition home or self-care (01) ==
LOC: ER 14:57
DX: L02.31 Cutaneous abscess of buttock (principal); Z88.0 Allergy status to penicillin; Z88.8 Allergy status to other drugs, medicaments and biological substances
CPT/HCPCS: 10060; 99283; J3490; 96372